=== PATIENT | male | born 1960 | race Caucasian/White ===

== ENCOUNTER 2025-05-04 13:52 | Inpatient (IN) | payer MEDICARE, BC ==
[2025-05-01 08:27] LABS: MEAN PLATELET VOLUME 7.4 FL (7.4-10.4); RED CELL DISTRIBUTION WIDTH 12.8 % (11.5-14.5)
[2025-05-01 08:44] LABS: APTT 26 SECONDS (22-32); INR 1.1 INR
[2025-05-01 13:48] LABS: CHOL/HDL RATIO 3.9 (0.00-4.99); CREATININE 1.12 MG/DL (0.60-1.10); LDL CHOLESTEROL 62 MG/DL (50-100); TOTAL CARBON DIOXIDE 25.0 MMOL/L (24-32); eGFR 66 ML/MIN
[2025-05-04] VITALS (12 sets, daily range): BP systolic 97–160; BP diastolic 61–95; PULSE 80–117; RESP 12–16; TEMP 97.8–98.6; O2SAT 98–100
[~2025-05-04] VITALS: Ht 177.8 cm; Wt 96.6 kg
--- NOTE | 2025-05-04 14:32 | ELECTROCARDIOGRAPH REPORT ---
[facility] Test Date: 2025-05-04 Test Time: 14:29:49 Pat Name: ROSARIO OLSON Department: [facility] Patient ID: [id number] Room: Gender: M Cart Pusher: MORENA : 1960 Requested By: CARITO MINOR Order Number: [id number] Reading MD: Dr. CARMEN Cotton Measurements Intervals [place] Rate: 79 P: 40 OK: 164 QRS: 9 QRSD: 109 T: 81 QT: 365 QTc: 419 Interpretive Statements Sinus rhythm Incomplete RBBB and LAFB Consider right ventricular hypertrophy Electronically Signed On 05-04-2025 19:24:[address] CARMEN Cotton Please click the below link to view image of tracing.
[2025-05-04] MEDS ORDERED: FENO134C21 PO (14:34)
[2025-05-04] MEDS ORDERED: SEMA0.258 SQ (14:34)
[2025-05-04] MEDS ORDERED: CLOP75TA34 PO (14:34)
[2025-05-04] MEDS ORDERED: ALLO300T8 PO (14:34)
[2025-05-04] MEDS ORDERED: LISI10TA27 PO (14:34)
[2025-05-04] MEDS ORDERED: CIME400T11 PO (14:34)
[2025-05-04] MEDS ORDERED: METF-438 PO (14:34)
[2025-05-04] MEDS ORDERED: SUMA25TA9 (14:34)
[2025-05-04] MEDS ORDERED: TADA5TAB14 PO (14:34)
[2025-05-04] MEDS ORDERED: ATOR40TA72 PO (14:34)
[2025-05-04] MEDS ORDERED: ASPI81TA52 PO (14:35)
[2025-05-04] MEDS ORDERED: phenylephrine 10mg/ml inj. ONE (16:16)
[2025-05-04] MEDS ORDERED: LIDOcaine 1% 30ml preserv. free vial ONE (16:16)
[2025-05-04] MEDS ORDERED: atropine 0.1mg/ml 10ml syringe ONE (16:17)
[2025-05-04] MEDS ORDERED: heparin 1,000unit/ml 10ml vial 10 ML ONE (16:17)
[2025-05-04] MEDS ORDERED: OXAZEpam 15mg capsule PO PRN (18:20)
[2025-05-04] MEDS ORDERED: pseudoephedrine 30mg tablet PO PRN (18:20)
[2025-05-04] MEDS ORDERED: HYDROcodone/acetaminophen 10/325mg tab PO PRN (18:20)
[2025-05-04] MEDS ORDERED: hydrALAZINE 20mg/ml inj. IV PRN (18:20)
[2025-05-04] MEDS: DOPamine 400mg/D5W 250ml 250 ML IV SCH (18:20)
[2025-05-04] MEDS ORDERED: HYDROcodone/acetaminophen 5mg/325mg tablet PO PRN (18:20)
[2025-05-04] MEDS ORDERED: magnesium hydroxide 30ml (MOM) UD suspension PO PRN (18:25)
[2025-05-04] MEDS: famotidine/PF 10 mg/ml inj IV ONE (18:50)
[2025-05-04] MEDS: ondansetron/PF 4mg/2ml inj ONE (19:00)
[2025-05-04] MEDS: SEMAGLUTIDE 0.25 MG SQ SCH (19:05)
[2025-05-04] MEDS: calcium carbonate 500mg chew tablet PO PRN (19:58)
[2025-05-04] MEDS: magnesium hydroxide 30ml (MOM) UD suspension PO ONE (22:54)
[2025-05-05 01:30] VITALS: BP 127/82; PULSE 97; RESP 18; TEMP 98.3; O2SAT 100
[2025-05-05 02:42] VITALS: BP 120/72; PULSE 79; RESP 18; TEMP 98.3; O2SAT 100
[2025-05-05 06:00] VITALS: BP_SYST 102; BP_SYST 124; BP_DIAS 56; BP_DIAS 78; PULSE 79; PULSE 88; RESP 15; RESP 17; TEMP 97.6; TEMP 98.2; O2SAT 98; O2SAT 99
[2025-05-05 08:00] VITALS: RESP 15; O2SAT 99
[2025-05-05] MEDS: [UNRECOGNIZED DRUG - OTHER] PO SCH (08:00)
[2025-05-05] MEDS: FENOFIBRATE 134 MG PO SCH (08:00)
[2025-05-05] MEDS ORDERED: non-formulary drug (Tadalafil 1 TAB) PO SCH (08:00)
[2025-05-05] MEDS: aspirin 81mg, enteric-coated 1 TAB TABLET.DR PO SCH (08:39)
[2025-05-05] MEDS ORDERED: DEXTROSE 15 GM of carb/4 tabs (each vial/BOTTLE has 4 tablets) PO PRN ×2 (10:25)
[2025-05-05] MEDS ORDERED: glucagon, human recombinant 1mg kit SUBCUT PRN (10:25)
[2025-05-05] MEDS ORDERED: dextrose 50%-water 50ml dispensing syringe IV PRN ×2 (10:25)
[2025-05-05 11:00] VITALS: BP 124/78; PULSE 88; RESP 15; TEMP 98.2; O2SAT 99
[2025-05-05] MEDS: INSULIN LISPRO 100 UNIT/ML INSULN.PEN MULTI-DOSE SQ SCH (12:00)
[2025-05-05 15:00] VITALS: BP 112/65; PULSE 81; RESP 13; TEMP 97.5; O2SAT 99
--- NOTE | 2025-06-14 03:50 | CARDIOLOGY REPORT ---
DATE OF SERVICE: 05/04/2025 DICTATING PHYSICIAN: Raphael Wyman MD CARDIAC CATHETERIZATION REPORT DATE OF STUDY: 05/04/2025 PROCEDURES: 1. Aortic arch angiography. 2. Selective left common and internal carotid artery angiography. 3. Selective right common and internal and external carotid artery angiography. 4. Angioplasty of the left common and internal carotid artery. 5. Stenting x1 of the left common and internal carotid artery. 6. Hemostasis to the right groin using the Perclose device. INDICATION: Carotid artery stenosis. PHYSICIAN: Raphael Wyman MD DESCRIPTION OF PROCEDURE: After informed consent was obtained, the patient was brought to the lab where he was prepped and draped in the usual C-arm fashion. After adequate anesthesia was obtained, using 1% lidocaine to the right groin, a 6-Lao sheath was inserted into the right femoral artery. Thereafter, using a pigtail catheter, the catheter was advanced into the ascending aorta and aortic arch angiography performed. Next, using a Hollins 2 catheter, the catheter was formed in the ascending aorta and the left common carotid artery engaged and selective left common, internal and external carotid artery angiography was performed. Thereafter, the catheter was manipulated to engage the right common carotid and selective angiography of the right common, right external and internal carotid artery was performed. Revascularization of the right internal carotid artery was then performed as described below. SUBCUTANEOUS TRANSLUMINAL ANGIOPLASTY AND STENTING: Using a 7.2 Emboshield, the Emboshield was carefully navigated into the right internal carotid artery where it was deployed. Thereafter, using a 4.0 Viatrac balloon, the lesion was predilated. Following predilatation, an 86 x 30 XACT stent was advanced and deployed across the common and internal carotid artery. This was then postdilated with a 5 x 20 Viatrac balloon. Follow-up angiography revealed very good angiographic results. HEMODYNAMICS: For the patient's hemodynamics, please refer to the event log. FINDINGS: The patient has a type 2 aortic arch with calcification of the arch and the takeoff of the great vessels. No high-grade stenosis noted. The right internal carotid artery has an ulcerated calcified 60% stenosis at the origin of the internal carotid artery. The left internal carotid artery immediately at its takeoff has a 98% stenosis. IMPRESSION: 1. Angioplasty/stenting of a 98% right internal carotid artery stenosis with an 8 to 6 x 30 XACT stent with excellent results. 2. A 60% stenosis of the right internal carotid artery that will be followed carefully. Raphael Wyman MD TID: [id number] RECEIPT: [id number] QUINTON/PAYAL/HEATHER
--- NOTE | 2025-06-15 05:42 | DISCHARGE SUMMARY ---
DATE OF DISCHARGE: 05/05/2025 DICTATING PHYSICIAN: Raphael Wyman MD HISTORY: The patient was admitted yesterday electively for carotid artery stenting. He was noted to have a 60% ulcerated right internal carotid artery stenosis and a 98% stenosis of the left internal carotid artery that was stented. The patient remained clinically and hemodynamically stable overnight. Discharged in stable condition post carotid artery stenting. Raphael Wyman MD TID: [id number] RECEIPT: [id number] QUINTON/PAYAL
== END 2025-05-05 19:23 | disposition home or self-care (01) | DRG 36 ==
LOC: SSTAY O 13:52 → OBSVTOIN 19:15 → PCU 3S 19:15
PROVIDERS: ADMIT Internal Medicine Interventional Cardiology; ATTEND Student in an Organized Health Care Education/Training Program
PROC: 037K3DZ Dilation of Right Internal Carotid Artery with Intraluminal Device, Percutaneous Approach (ICD-10-PCS; principal; 2025-05-04)
PROC: B3151ZZ Fluoroscopy of Bilateral Common Carotid Arteries using Low Osmolar Contrast (ICD-10-PCS; 2025-05-04)
PROC: B3171ZZ Fluoroscopy of Left Internal Carotid Artery using Low Osmolar Contrast (ICD-10-PCS; 2025-05-04)
PROC: B31C1ZZ Fluoroscopy of Bilateral External Carotid Arteries using Low Osmolar Contrast (ICD-10-PCS; 2025-05-04)
PROC: B4101ZZ Fluoroscopy of Abdominal Aorta using Low Osmolar Contrast (ICD-10-PCS; 2025-05-04)
DX: I65.23 Occlusion and stenosis of bilateral carotid arteries (principal); Z88.0 Allergy status to penicillin
CPT/HCPCS: 36222; 36415; 37216; 80048; 80061; 82948; 83695; 85025; 85610; 85730; 93005; A6258; A6455; C1725; C1760; C1769; C1876; C1884; C1887; C1894; G0378; J0461; J1644; J1815; J2003; J2371; J2405; J3490; J7030; Q9967